=== PATIENT | male | born 1980 | race Caucasian/White ===

== ENCOUNTER 2017-07-03 18:34 | Emergency (ER) | payer OTHER ==
[~2017-07-03] VITALS: Ht 187.9 cm; Wt 95.3 kg
== END 2017-07-03 19:23 | disposition home or self-care (01) ==
LOC: ED 18:34
DX: S62.611A Displaced fracture of proximal phalanx of left index finger, initial encounter for closed fracture (principal); W50.0XXA Accidental hit or strike by another person, initial encounter; Y93.89 Activity, other specified; Y92.89 Other specified places as the place of occurrence of the external cause; Y99.8 Other external cause status; S90.811A Abrasion, right foot, initial encounter